=== PATIENT | male | born 1960 | race Caucasian/White ===

== ENCOUNTER 2016-05-28 11:38 | Emergency (ER) | payer MEDICAID ==
[2016-05-28 11:44] VITALS: RESP 18; O2SAT 95
--- NOTE | 2016-05-28 12:33 | EDPHY ---
H & P Time Seen by Provider: 05/28/16 12:10 HPI/ROS: CHIEF COMPLAINT: Back pain for greater than 1 month HISTORY OF PRESENT ILLNESS: This 56-year-old man has had a history of chronic back pain and had an MRI in January of 2016 [facility] showing bulging discs but no surgical problem. He was having back pain for at least the last 5 weeks after bending over. He did go to [facility] on May 15 and was treated with oral diazepam. Over the past 2 years he has come to the emergency department several times for oral Flexeril which he says helps when he gets acute exacerbations of his chronic back pain. Today he has acute severe right low back pain which does not radiate. It is worse with movement. It is not associated with weakness or numbness in his legs or incontinence. REVIEW OF SYSTEMS: No fever or chills or recent injury. 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 General Appearance: Alert and conversant, cooperative. Abdomen soft and nontender. Normal lower extremity strength and sensation, toes downgoing bilaterally. Straight leg raising negative bilaterally. Patellar reflexes 2+ symmetric and ankle reflexes 1+ symmetric, no clonus. Has paraspinal muscle tenderness right lower lumbar region. No midline spinal tenderness. Emergency Department course/MDM: Patient presents with acute exacerbation of chronic back pain. His plan is to see [facility] tomorrow. He does not have neurologic deficit to suggest an neurosurgical emergency. I do not think he has aortic aneurysm or cauda equina or renal colic. Procedure: Trigger point injection Risk benefit and alternatives discussed and consented with the patient. 8 mLs of 0.5% bupivacaine without epinephrine were injected with 27 gauge needle , after standard sterile prep into the right lower paraspinal area. Patient tolerated procedure well. Flexeril 11, follow up with primary care and [facility]. Smoking Status: Current every day smoker Constitutional: Initial Vital Signs Temperature (C) 36.7 C 05/28/16 11:40 Heart Rate 67 05/28/16 11:40 Respiratory Rate 18 05/28/16 11:40 Blood Pressure 113/80 05/28/16 11:40 O2 Sat (%) 95 05/28/16 11:40 O2 Delivery Mode Room Air Allergies/Adverse Reactions: No Known Allergies Allergy (Verified 12/07/13 11:54) Home Medications: Medication Instructions Recorded Cyclobenzaprine [Flexeril] 10 mg PO TID PRN #11 tab 05/28/16 MDM/Departure - Depart Disposition: Home, Routine, Self-Care Clinical Impression: Back pain Qualifiers: Back pain location: low back pain Chronicity: acute Back pain laterality: right Sciatica presence: without sciatica Qualified Code(s): M54.5 - Low back pain Condition: Good Instructions: Acute Low Back Pain (ED), Chronic Back Pain (ED) Prescriptions: Cyclobenzaprine [Flexeril] 10 mg PO TID PRN #11 tab PRN Reason: back pain Referrals: [facility],. [Clinic] - As per Instructions
[2016-05-28 12:56] VITALS: BP 128/88; PULSE 74; TEMP 97.7
== END 2016-05-28 12:56 | disposition home or self-care (01) ==
DX: M54.5 Low back pain (principal); F17.200 Nicotine dependence, unspecified, uncomplicated

== ENCOUNTER 2016-10-26 08:44 | Emergency (ER) | payer MEDICAID ==
[2016-10-26 08:50] VITALS: BP 114/76; PULSE 85; RESP 16; TEMP 97.7; O2SAT 97
--- NOTE | 2016-10-26 09:25 | EDPHY ---
HPI/HX/ROS/PE/MDM Narrative: CHIEF COMPLAINT: Chronic back pain HPI: The patient is a 56 y/o male with a history of degenerative disc disease and chronic back pain requesting a prescription refill for Flexeril. He was seen here in May with similar complaints. He reports Flexeril helps significantly when he has worsening spasms, but he is out of it and hasn't been able to see [facility]. He denies any new symptoms including weakness, paresthesias, incontinence, fever, or other complaints. REVIEW OF SYSTEMS: Aside from elements discussed in the HPI, a comprehensive 10-point review of systems was reviewed and is negative. PMH: Chronic back pain SOCIAL HISTORY: PCP at [facility] PHYSICAL EXAM: General:Patient is alert, in no acute distress. ENT:Eyes are normal to inspection. ENT inspection normal. Neck: Normal inspection. Full range of motion. Respiratory:No respiratory distress. Breath sounds normal bilaterally. Cardiovascular: Regular rate and rhythm. Strong peripheral pulses. Normal cap refill. Abdomen:The abdomen is nontender to palpation. There are no peritoneal signs. Back: Normal to inspection. No tenderness to palpation. Skin: Normal color. No rash. Warm and dry. Extremities: Normal appearance. Full range of motion. Neuro: Oriented x3. Normal motor function. Normal sensory function. ED Course: Small script for Flexeril provided. He understands he needs to follow up with his PCP to manage his chronic condition and that the ED cannot provide repeated refills for this. General Time Seen by Provider: 10/26/16 09:07 Initial Vital Signs: Initial Vital Signs Temperature (C) 36.5 C 10/26/16 08:46 Heart Rate 85 10/26/16 08:46 Respiratory Rate 16 10/26/16 08:46 Blood Pressure 114/76 10/26/16 08:46 O2 Sat (%) 97 10/26/16 08:46 O2 Delivery Mode Room Air Allergies/Adverse Reactions: No Known Allergies Allergy (Verified 10/26/16 08:46) Home Medications: Medication Instructions Recorded Cyclobenzaprine [Flexeril] 10 mg PO TID PRN #11 tab 05/28/16 Departure - Departure Disposition: Home, Routine, Self-Care Clinical Impression: Back muscle spasm, Prescription refill Chronic back pain Qualifiers: Back pain location: low back pain Back pain laterality: unspecified Sciatica presence: without sciatica Qualified Code(s): M54.5 - Low back pain Condition: Good Instructions: Cyclobenzaprine (By mouth), Chronic Back Pain (ED) Additional Instructions: Take Flexeril as prescribed for symptoms. Please be advised the ED cannot provide repeated prescription refills for chronic conditions. You need to follow up with your primary care provider to manage your symptoms. Referrals: [facility] [Other] - As per Instructions Report Scribed for: Laith Schaffer Report Scribed by: Michelle Padron Date of Report: 10/26/16 Time of Report: 09:26 Physician Review and Approval Statement: Portions of this note were transcribed by an ED scribe. I personally performed the history, physical exam, and medical decision making; and confirm the accuracy of the information in the transcribed note.
== END 2016-10-26 09:35 | disposition home or self-care (01) ==
DX: Z76.0 Encounter for issue of repeat prescription (principal); G89.29 Other chronic pain; M62.830 Muscle spasm of back